=== PATIENT | female | born 1955 | race Caucasian/White ===

== ENCOUNTER 2022-10-06 19:00 | Emergency (ER) | payer OTHER, SELFPAY ==
[2022-10-06] VITALS (9 sets, daily range): BP systolic 98–141; BP diastolic 67–79; PULSE 62–76; RESP 16–18; TEMP 36.4; O2SAT 95–100; BMI 24.2
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
[2022-10-06 19:36] LABS: Appearance Urine Cloudy (Clear); Bilirubin Urine Negative (Negative); Blood Urine 2+ (Negative); Color Urine Yellow (Yellow); Glucose Urine Negative (Negative); Ketones Urine Negative (Negative); Leukocyte Esterase Urine 1+ (Negative); Nitrite Urine Positive (Negative); Protein Urine 2+ (Negative); Specific Gravity Urine 1.015 (1.000-1.030)
--- NOTE | 2022-10-06 19:38 | CRLHL7_ITS ---
For Patients: As a result of the Cures Act, medical imaging exams and procedure reports are released immediately into your electronic medical record. You may view this report before your referring provider. If you have questions, please contact your health care provider. HISTORY: Low back pain. TECHNIQUE: Three views of the lumbar spine. COMPARISON: No prior. FINDINGS: Slight rightward curvature of the lumbar spine. The lumbar vertebral body height is maintained. Mild loss of disc height at L4-L5 and L5-S1. No acute fracture. There are facet joint degenerative changes. Aortic atherosclerotic vascular calcifications. IMPRESSION: 1. No acute fracture. 2. Degenerative changes. Dictated by Marco A Swanson MD @ 10/06/2022 8:28:41 PM Dictated by: Marco A Swanson MD @ 10/06/2022 20:28:46 (Electronically Signed)
[2022-10-06 19:56] LABS: RBC Urine 0-2 (0-2)
[2022-10-06 19:57] LABS: Bacteria Urine Many; Fine Granular Casts Urine Few; Squamous Epithelial Cell Urine Few (None-Few)
[2022-10-06 20:00] LABS: Lactate* 1.1 mmol/L (0.5-1.9)
[2022-10-06 20:01] LABS: Basophils Absolute Auto 0.02 K/uL (0.00-0.30); Basophils Percent Auto 0.2 % (0.0-3.0); Eosinophils Absolute Auto 0.25 K/uL (0.00-0.50); Eosinophils Percent Auto 2.9 % (0.0-7.0); Hematocrit 40.4 % (33.0-51.0); Hemoglobin* 13.9 gm/dL (12.0-16.0); Immature Granulocytes Abs Auto 0.03 K/uL (0.00-0.30); Immature Granulocytes Pct Auto 0.3 %; Lymphocytes Percent Auto 15.7 % (20-44); Mean Corpuscular HGB Conc 34 gm/dL (32-36); Mean Corpuscular Hemoglobin 33 pg (26-34); Mean Corpuscular Volume 95 fL (80-100); Monocytes Percent Auto 9.3 % (0.0-11.0); Neutrophils Absolute Auto 6.24 K/uL (1.7-7.0); Neutrophils Percent Auto 71.6 % (42.0-72.0); Platelet Count* 371 K/uL (140-440); RDW Coefficient of Variation % 12.3 % (11.5-15.5); Red Blood Count 4.25 m/uL (4.00-5.20); White Blood Count* 8.72 K/uL (4.50-11.00)
[2022-10-06 20:25] LABS: D Dimer Quantitative* 1.65 ug/ml (0.00-0.50)
[2022-10-06 20:34] LABS: Slide Review Reflex No
--- NOTE | 2022-10-06 21:00 | CRLHL7_ITS ---
For Patients: As a result of the Century Cures Act, medical imaging exams and procedure reports are released immediately into your electronic medical record. You may view this report before your referring provider. If you have questions, please contact your health care provider. INDICATION: Presyncope, back pain, elevated D-dimer. TECHNIQUE: CT chest PE, abdomen and pelvis acquired with 85 cc Isovue 370 IV contrast. COMPARISON: None. FINDINGS: CHEST: Cardiovascular structures: Heart size is normal. Mild ectasia of the ascending aorta measuring 3.7 centimeters. No sign of pulmonary embolism. Aortic arch and coronary artery calcifications. Mediastinum and adal: No mass or adenopathy. Tiny hiatal hernia. Lungs and pleura: Biapical scarring. Lungs and pleural spaces are clear. No suspicious nodules, infiltrates, or effusions. Chest wall and axilla: No mass or adenopathy. Bones: No suspicious bone lesions. Unremarkable for age. ABDOMEN AND PELVIS: Liver: Unremarkable. Gallbladder and bile ducts: Unremarkable. Pancreas: Unremarkable. Spleen: Unremarkable. Adrenal glands: Unremarkable. Kidneys: Unremarkable. GI tract: Mild colonic stool burden. No bowel obstruction. Mild colonic diverticulosis without diverticulitis. Appendix not definitely seen, however no right lower quadrant inflammatory changes to suggest appendicitis. Vascular structures: Moderate to severe aortoiliac arterial calcifications. No abdominal aortic aneurysm. Lymph nodes: Unremarkable. Miscellaneous: Unremarkable. No free air or significant free fluid. Pelvic Organs: Unremarkable. Bones: No suspicious bone lesions. Unremarkable for age. IMPRESSION: No pulmonary embolism as questioned. No focal consolidations. No acute intra-abdominal/pelvic abnormality. Mild colonic stool burden. Colonic diverticulosis without diverticulitis. Moderate to severe atherosclerotic calcifications of the intrathoracic/intra-abdominal aorta. No aortic aneurysm. Please note that all CT scans at this facility use dose modulation, iterative reconstruction, and/or weight-based dosing when appropriate to reduce radiation dose to as low as reasonably achievable. Dictated by Gio Plaza MD @ 10/06/2022 10:29:51 PM (Electronically Signed)
[2022-10-06 21:17] LABS: Albumin* 3.8 g/dL (3.3-5.0); Chloride* 93 mmol/L (96-114)
[2022-10-06 21:18] LABS: Potassium* 3.3 mmol/L (3.6-5.1); Sodium* 132 mmol/L (135-149)
[2022-10-06 21:20] LABS: Bilirubin Total* 0.7 mg/dL (0.1-1.5); Carbon Dioxide* 31 mmol/L (20-32); Creatinine* 1.8 mg/dL (0.5-1.5); Est. Creatinine Clearance* 28.78; Estimated Glomerular Filt Rate 31 ml/min; Total Protein* 7.3 g/dL (6.0-8.3)
[2022-10-06 21:21] LABS: Alanine Aminotransferase* 19 U/L (4-35); Alkaline Phosphatase* 105 U/L (40-150); Aspartate Amino Transferase* 16 U/L (12-35); Blood Urea Nitrogen* 27 mg/dL (7-30); Calcium* 9.2 mg/dL (8.4-10.6); Glucose* 140 mg/dL (60-115)
[2022-10-06] MEDS: 0.9 % SODIUM CHLORIDE 1000 ml 1,000 ML IV (21:56)
== END 2022-10-06 23:13 | disposition home or self-care (01) ==
PROVIDERS: Emergency Provider Family Medicine; PCP Family Medicine
DX: R55 Syncope and collapse (principal); R94.31 Abnormal electrocardiogram [ECG] [EKG]; I70.0 Atherosclerosis of aorta; N28.9 Disorder of kidney and ureter, unspecified; N39.0 Urinary tract infection, site not specified
CPT/HCPCS: 36415; 71260; 72100; 74177; 80053; 81001; 81003; 81015; 83605; 84484; 85025; 85379; 87086; 87186; 93005; 94761; 96360; 99284; 99285; J7030; Q9967

== ENCOUNTER 2022-12-15 11:22 | Outpatient (CLI) | payer OTHER, SELFPAY | END 2022-12-15 11:23 | disposition home or self-care (01) | PROVIDERS: PCP Family Medicine; Visit Provider Family Medicine | DX: I10 Essential (primary) hypertension (principal); E78.5 Hyperlipidemia, unspecified; E03.9 Hypothyroidism, unspecified | CPT/HCPCS: 80048; 80061; 84443 ==

== ENCOUNTER 2024-04-07 14:39 | Outpatient (CLI) | payer OTHER, SELFPAY | END 2024-04-07 14:40 | disposition home or self-care (01) | PROVIDERS: PCP Family Medicine; Visit Provider Family Medicine | DX: I10 Essential (primary) hypertension (principal); E78.5 Hyperlipidemia, unspecified; E03.9 Hypothyroidism, unspecified | CPT/HCPCS: 80048; 80061; 84443 ==

== ENCOUNTER 2025-05-09 15:19 | Outpatient (CLI) | payer MEDICAID, SELFPAY | END 2025-05-09 15:20 | disposition home or self-care (01) | PROVIDERS: PCP Family Medicine; Visit Provider Family Medicine | DX: I10 Essential (primary) hypertension (principal); E78.00 Pure hypercholesterolemia, unspecified; E03.9 Hypothyroidism, unspecified | CPT/HCPCS: 80048; 80061; 84439; 84443 ==